=== PATIENT | male | born 1965 | race Two or more races ===

== ENCOUNTER 2017-09-29 16:07 | Emergency (ER) | payer OTHER ==
[~2017-09-29] VITALS: Ht 170.2 cm; Wt 59.0 kg
[2017-09-29] MEDS ORDERED: OMEPRAZOLE20 M1 PO (16:21)
[2017-09-29] MEDS ORDERED: PANTOPRAZOLE SO40 MG PO ×2 (18:36)
--- NOTE | 2017-09-29 23:13 | EKG ---
[facility] [address] [facility] [place] [address] Signed Normal sinus rhythm Normal ECG No previous ECGs available Confirmed by JAD BAER MD ([id number]) on 09/29/2017 11:13:21 PM Electronically Signed By: JAD BAER MD 09/29/17 2313 PATIENT NAME: ROSIE BELAL TIARA Electrocardiogram DATE OF : 63 PHYSICIAN: JAD BAER MD REPORT #: [id number] REPORT IS CONFIDENTIAL AND NOT TO BE RELEASED WITHOUT AUTHORIZATION
== END 2017-09-29 19:15 | disposition home or self-care (01) ==
LOC: ED 16:07
DX: K22.4 Dyskinesia of esophagus (principal); K21.9 Gastro-esophageal reflux disease without esophagitis; Z79.899 Other long term (current) drug therapy
CPT/HCPCS: 71045; 80053; 83690; 84484; 85025; 93005; 93010; 96374; 96375; 99284; J2765; J3360

== ENCOUNTER 2017-10-21 12:30 | Emergency (ER) | payer OTHER ==
[~2017-10-21] VITALS: Ht 170.2 cm; Wt 59.0 kg
[~2017-10-21 12:30] MED LIST: OMEPRAZOLE20 M1 PO; PANTOPRAZOLE SO40 MG PO
== END 2017-10-21 12:51 | disposition home or self-care (01) ==
LOC: ED 12:30
DX: M25.561 Pain in right knee (principal); M25.562 Pain in left knee

== ENCOUNTER 2017-11-22 12:32 | Emergency (ER) | payer OTHER ==
[~2017-11-22] VITALS: Ht 172.7 cm; Wt 62.6 kg
== END 2017-11-22 13:36 | disposition home or self-care (01) ==
LOC: ED 12:32
DX: S90.32XA Contusion of left foot, initial encounter (principal); Z91.018 Allergy to other foods; Z79.899 Other long term (current) drug therapy; W20.8XXA Other cause of strike by thrown, projected or falling object, initial encounter
CPT/HCPCS: 73630; 99283